=== PATIENT | female | born 1935 | race Asian ===

== ENCOUNTER 2019-12-12 17:26 | Inpatient (IN) | payer OTHER, MEDICARE ==
[~2019-12-12] VITALS: Ht 152.4 cm; Wt 42.6 kg
[2019-12-12] MEDS ORDERED: INSULIN (17:30)
[2019-12-12] MEDS ORDERED: LISINOPRIL (17:30)
[2019-12-12] MEDS ORDERED: MORPHINE SULFATE 4 MG/ML CPJ (NOT FOR IM USE) IV STA (18:13)
[2019-12-12] MEDS ORDERED: SODIUM CHLORIDE 0.9% 1,000 ML IV ONE (18:13)
[2019-12-12 18:32] LABS: BASOPHILS % 0.7 % (0.0-2.0); EOSINOPHILS % 1.2 % (0.0-5.0); HEMATOCRIT. 32.1 % (36.0-48.0); HEMOGLOBIN. 10.7 g/dL (12.0-16.0); LYMPHOCYTES % 20.4 % (20.0-50.0); MEAN CORPUSCULAR HEMOGLOBIN 31.5 pg (28.0-32.0); MEAN CORPUSCULAR VOLUME 94.8 fL (81.0-99.0); MEAN PLATELET VOLUME 9.7 fl (7.4-10.4); MONOCYTES % 4.1 % (2.0-8.0); NEUTROPHILS % 73.6 % (40.0-76.0); PLATELET 194 x1000/uL (130-400); RED BLOOD CELL COUNT 3.38 mill/uL (4.2-5.4); RED CELL DISTRIBUTION WIDTH 15.2 % (11.6-14.6)
[2019-12-12 18:35] LABS: CHLORIDE 112 mEq/L (98-107)
[2019-12-12 18:37] LABS: INR 0.9; PROTHROMBIN TIME 10.2 sec (9.6-11.0)
[2019-12-12] MEDS ORDERED: IOHEXOL-300 100 ML BOTTLE ONE (19:08)
[2019-12-12 20:29] LABS: CLARITY URINE CLEAR (CLEAR); COLOR URINE YELLOW (YELLOW); KETONES URINE NEGATIVE (NEGATIVE); LEUKOCYTE ESTERASE URINE NEGATIVE (NEGATIVE); NITRITE URINE NEGATIVE (NEGATIVE); OCCULT BLOOD URINE 1+ (NEGATIVE); PH URINE 6.5 (4.5-8.0); PROTEIN URINE NEGATIVE (NEGATIVE); SPECIFIC GRAVITY URINE 1.016 (1.005-1.030); UROBILINOGEN URINE 0.2 E.U./dL (0.2-1.0)
[2019-12-12] MEDS ORDERED: DOCUSATE SODIUM 100MG CAPSULE PO PRN (23:00)
[2019-12-12] MEDS ORDERED: MORPHINE SULFATE 2 MG/ML CPJ (NOT FOR IM USE) IV PRN (23:00)
[2019-12-12] MEDS ORDERED: IPRATROPIUM/ALBUTEROL 0.5-3(2.5)MG/3ML NEB NEB PRN (23:00)
[2019-12-12] MEDS ORDERED: ACETAMINOPHEN 325MG TABLET PO PRN (23:00)
[2019-12-12] MEDS ORDERED: HYDROCODONE/ACETAMINOPHEN 5/325MG TABLET PO PRN (23:00)
[2019-12-12] MEDS ORDERED: ONDANSETRON HCL 4MG/2ML INJ IV PRN (23:00)
[2019-12-13] VITALS: BP 142/49
[2019-12-13] MEDS ORDERED: LOSA100T32 MT (01:58)
[2019-12-13] MEDS ORDERED: ALLO300T2 MT (01:58)
[2019-12-13] MEDS ORDERED: NIFE-33 MT (01:58)
[2019-12-13] MEDS ORDERED: METF-416 MT (01:58)
[2019-12-13] MEDS ORDERED: ALEN10TA25 MT (01:58)
[2019-12-13 02:24] LABS: *AMPHETAMINES SCREEN URINE NEGATIVE (NEGATIVE); *BARBITURATES SCREEN URINE NEGATIVE (NEGATIVE); *BENZODIAZEPINES SCREEN URINE NEGATIVE (NEGATIVE); CANNABINOID URINE SCREEN NEGATIVE (NEGATIVE)
[2019-12-13 02:25] LABS: *COCAINE SCREEN URINE NEGATIVE (NEGATIVE); METHADONE URINE SCREEN NEGATIVE (NEGATIVE); OPIATES URINE SCREEN PRESUMTIVE POSITIVE (NEGATIVE); PHENCYCLIDINE URINE SCREEN NEGATIVE (NEGATIVE)
[2019-12-13] MEDS: SODIUM CHLORIDE 0.9% 1,000 ML IV SCH ×2 (03:07→15:13)
[2019-12-13] MEDS ORDERED: DEXTROSE 50% WATER 50ML SYRINGE IV PRN (03:30)
[2019-12-13] MEDS: BLOOD SUGAR DIAGNOSTIC STRIP TEST SCH ×4 (06:36→21:20)
[2019-12-13 06:37] LABS: BASOPHILS % 0.5 % (0.0-2.0); EOSINOPHILS % 1.3 % (0.0-5.0); HEMATOCRIT. 29.7 % (36.0-48.0); HEMOGLOBIN. 10.3 g/dL (12.0-16.0); LYMPHOCYTES % 11.3 % (20.0-50.0); MEAN CORPUSCULAR VOLUME 92.2 fL (81.0-99.0); MEAN PLATELET VOLUME 9.4 fl (7.4-10.4); MONOCYTES % 5.3 % (2.0-8.0); NEUTROPHILS % 81.6 % (40.0-76.0); PLATELET 176 x1000/uL (130-400); RED BLOOD CELL COUNT 3.22 mill/uL (4.2-5.4); RED CELL DISTRIBUTION WIDTH 14.9 % (11.6-14.6)
[2019-12-13 06:44] LABS: CHLORIDE 114 mEq/L (98-107)
[2019-12-13 06:56] LABS: CREATINE KINASE 112 IU/L (26-192)
[2019-12-13 06:58] LABS: LDL CHOLESTEROL 97 mg/dL (5-100)
[2019-12-13 06:59] LABS: HDL CHOLESTEROL 63 mg/dL (40-59)
[2019-12-13 07:00] LABS: CREATINE KINASE MB FRACTION 1.5 ng/mL (0.5-3.6)
[2019-12-13] MEDS: INSULIN LISPRO 100 UNITS/ML SUBCUT SCH ×4 (07:50→21:00)
[2019-12-13 08:00] VITALS: BP 130/60
[2019-12-13] MEDS: HEPARIN 5000 UNITS/ML VIAL SUBCUT SCH ×2 (08:15→21:33)
[2019-12-13 12:00] VITALS: BP 133/56
[2019-12-13 16:00] VITALS: BP 120/55
[2019-12-13 17:00] LABS: CREATINE KINASE 95 IU/L (26-192)
[2019-12-13] MEDS ORDERED: HYDROMORPHONE HCL/PF 2MG/ML CPJ IV PRN (17:00)
[2019-12-13 17:01] LABS: CREATINE KINASE MB FRACTION 1.2 ng/mL (0.5-3.6)
[2019-12-13] MEDS ORDERED: IOHEXOL-300 100 ML BOTTLE ONE (17:15)
[2019-12-13] MEDS: ALLOPURINOL 300 MG TABLET PO SCH (19:32)
[2019-12-13 20:00] VITALS: BP 148/64
[2019-12-14] VITALS: BP 123/43
[2019-12-14 04:00] VITALS: BP 145/52
[2019-12-14 06:41] LABS: BASOPHILS % 0.5 % (0.0-2.0); EOSINOPHILS % 1.4 % (0.0-5.0); HEMATOCRIT. 29.3 % (36.0-48.0); LYMPHOCYTES % 16.2 % (20.0-50.0); MEAN CORPUSCULAR HEMOGLOBIN 31.9 pg (28.0-32.0); MEAN CORPUSCULAR VOLUME 93.3 fL (81.0-99.0); MONOCYTES % 3.7 % (2.0-8.0); NEUTROPHILS % 78.2 % (40.0-76.0); PLATELET 168 x1000/uL (130-400); RED BLOOD CELL COUNT 3.14 mill/uL (4.2-5.4); RED CELL DISTRIBUTION WIDTH 14.9 % (11.6-14.6)
[2019-12-14] MEDS: INSULIN LISPRO 100 UNITS/ML SUBCUT SCH ×4 (07:50→20:29)
[2019-12-14] MEDS: BLOOD SUGAR DIAGNOSTIC STRIP TEST SCH ×4 (07:58→20:29)
[2019-12-14 08:00] VITALS: BP 139/49
[2019-12-14 08:18] LABS: CHLORIDE 113 mEq/L (98-107)
[2019-12-14 08:23] LABS: PHOSPHORUS 2.8 mg/dL (2.5-4.9)
[2019-12-14] MEDS: LOSARTAN POTASSIUM 100 MG TABLET PO SCH (09:43)
[2019-12-14] MEDS: ALLOPURINOL 300 MG TABLET PO SCH (09:43)
[2019-12-14] MEDS: HEPARIN 5000 UNITS/ML VIAL SUBCUT SCH ×2 (09:44→20:59)
[2019-12-14] MEDS: NIFEDIPINE XL 30MG TAB PO SCH (09:44)
[2019-12-14] MEDS: SODIUM CHLORIDE 0.9% 1,000 ML IV SCH (09:49)
[2019-12-14 12:26] VITALS: BP_SYST 123; BP_SYST 155; BP_DIAS 58; BP_DIAS 73
[2019-12-14] MEDS: POLYETHYLENE GLYCOL 3350 (17GM) 1 DOSE PACK PO SCH (14:54)
[2019-12-14] MEDS ORDERED: MAGNESIUM 4 G PREMIX 100 ML IV SCH (15:00)
[2019-12-14 15:34] VITALS: BP 132/69
[2019-12-14 20:00] VITALS: BP 115/49
[2019-12-15] VITALS: BP 128/47
[2019-12-15 04:00] VITALS: BP 121/46
[2019-12-15] MEDS: SODIUM CHLORIDE 0.9% 1,000 ML IV SCH ×2 (05:06→17:40)
[2019-12-15] MEDS: BLOOD SUGAR DIAGNOSTIC STRIP TEST SCH ×3 (06:24→17:20)
[2019-12-15 07:02] LABS: CHLORIDE 113 mEq/L (98-107)
[2019-12-15 07:04] LABS: BASOPHILS % 0.4 % (0.0-2.0); EOSINOPHILS % 2.9 % (0.0-5.0); HEMATOCRIT. 29.9 % (36.0-48.0); HEMOGLOBIN. 10.4 g/dL (12.0-16.0); LYMPHOCYTES % 18.7 % (20.0-50.0); MEAN CORPUSCULAR VOLUME 92.1 fL (81.0-99.0); MEAN PLATELET VOLUME 10.7 fl (7.4-10.4); MONOCYTES % 3.9 % (2.0-8.0); NEUTROPHILS % 74.1 % (40.0-76.0); PLATELET 196 x1000/uL (130-400); RED BLOOD CELL COUNT 3.24 mill/uL (4.2-5.4); RED CELL DISTRIBUTION WIDTH 14.8 % (11.6-14.6)
[2019-12-15] MEDS: INSULIN LISPRO 100 UNITS/ML SUBCUT SCH ×3 (07:50→17:50)
[2019-12-15 08:00] VITALS: BP 120/55
[2019-12-15] MEDS: HEPARIN 5000 UNITS/ML VIAL SUBCUT SCH (09:00)
[2019-12-15] MEDS: NIFEDIPINE XL 30MG TAB PO SCH (09:15)
[2019-12-15] MEDS: POLYETHYLENE GLYCOL 3350 (17GM) 1 DOSE PACK PO SCH (09:16)
[2019-12-15] MEDS: ALLOPURINOL 300 MG TABLET PO SCH (09:16)
[2019-12-15] MEDS: LOSARTAN POTASSIUM 100 MG TABLET PO SCH (09:16)
[2019-12-15 12:00] VITALS: BP 126/52
[2019-12-15 16:00] VITALS: BP 107/50
== END 2019-12-15 17:35 | disposition home or self-care (01) | DRG 439 ==
LOC: ER 17:26 → EDBEDREQ 18:21 → MICUSO 19:51 → EDBEDREQ 19:55 → EDBEDREQTM 19:55 → 6WST 23:50
PROVIDERS: ADMIT Internal Medicine; ATTEND Internal Medicine
DX: D13.6 Benign neoplasm of pancreas (principal); E87.2 Acidosis; N39.0 Urinary tract infection, site not specified; K57.90 Diverticulosis of intestine, part unspecified, without perforation or abscess without bleeding; D64.9 Anemia, unspecified; E11.9 Type 2 diabetes mellitus without complications; E86.0 Dehydration; I10 Essential (primary) hypertension; K83.8 Other specified diseases of biliary tract; K86.89 Other specified diseases of pancreas; N28.1 Cyst of kidney, acquired; R74.0 Nonspecific elevation of levels of transaminase and lactic acid dehydrogenase [LDH]; K59.00 Constipation, unspecified; Z96.641 Presence of right artificial hip joint; T45.8X5A Adverse effect of other primarily systemic and hematological agents, initial encounter; Z90.49 Acquired absence of other specified parts of digestive tract; Y92.89 Other specified places as the place of occurrence of the external cause
CPT/HCPCS: 36415; 71045; 74177; 74181; 80048; 80053; 80061; 80305; 81003; 82550; 82553; 82962; 83605; 83735; 84100; 84145; 84443; 84484; 85025; 86301; 93005; 96374; 99285; J1644; J1815; J2270; J3475; J7030; Q9967